=== PATIENT | male | born 1965 | race Caucasian/White ===

== ENCOUNTER 2020-07-10 07:39 | Outpatient (NON) | payer OTHER, SELFPAY ==
[2020-07-10 18:19] LABS: SARS-CoV-2 RNA PCR Negative
== END 2020-07-10 07:40 ==
LOC: ANHCOVIDDT 07:41
PROVIDERS: Visit Provider Physician Assistant
DX: R68.89 Other general symptoms and signs (principal); Z20.828 Contact with and (suspected) exposure to other viral communicable diseases
CPT/HCPCS: 87635; C9803; U0003

== ENCOUNTER 2020-10-30 10:06 | Outpatient (CLI) | payer OTHER, SELFPAY ==
--- NOTE | 2020-11-14 19:31 | WPDHOMESLEEP ---
Sleep Study - Home Unattended Date of Study: 10/30/20 Ordering Provider: Lino Guerrero MD Interpreting Provider: Ese Kilgore MD Home Sleep Study Type: Apnea Link Air Height: 1.83 m Weight: 127.006 kg Body Mass Index: 38.0 Neck Circumference (inches): 17.5 [place]: 7 Reason for Sleep Study Hypersomnia Sleep History Herbert Reyes is a 55 year old man who describes himself as a restless sleeper. He has had palpitations especially at night since he had COVID-19. He snores loudly and never feels rested. He takes medications to help him fall asleep every night. Both of his parents have sleep issues and he has an uncle who uses CPAP. He rarely awakens at night with heartburn, belching or coughing. He constantly awakens from sleep feeling short of breath. He occasionally has trouble sleep with a cold. He rarely wakes up gasping for breath at night. He frequently is breathing problems at night observed by others. He rarely sweats excessively at night. He frequently notices his heart pounding irregularly at night. He rarely falls asleep during the day, never involuntarily or while driving. He does not have loss of muscle tone with strong emotion. He rarely has daytime difficulties due to excessive sleepiness, works as a . He does not feel paralyzed a waking or falling asleep and does not have vivid dreamlike scenes upon awakening or falling asleep. He rarely is afraid to go to sleep. He does not have nightmares. He rarely remembers his dreams and really has racing thoughts. He does not feel sad or depressed. He occasionally feels and anxious. He occasionally has muscular tension, occasionally notices parts of his body jerking and he occasionally kicks at night. He rarely has crawling or aching feelings in his legs at night. He rarely has any kind of leg pain at night. He does not have morning jaw pain. He rarely grinds his teeth during sleep. He occasionally has bothered by pain during the day. He frequently is awakened by pain at night. He frequently wakes up feeling stiff in the morning. He rarely wakes up with sore or achy muscles and rarely wakes up with pain in the neck and spine. He has fatigue, memory problems, headaches, palpitations and bowel disturbances. he has not had a change in his weight during the last year, 280 lb. He has had a tonsillectomy. Normal bedtime is 10:00 p.m. taking 1/2 hour to 1 hour to fall asleep typically waking 1 or 2 times at night to urinate, and is able to return to sleep within 5 minutes. His sleep is sometimes disturbed by shoulder pain. He wakes the morning at 6:00 a.m.. On weekends he also goes to bed at 10:00 p.m., wakes up at 8:00 a.m.. [facility] Past Medical History Medical History (Updated 11/14/20 @ 19:45 by Ese Kilgore MD) Dyslipidemia Hypertension Palpitations Shortness of Breath Surgical History Surgical History (Updated 11/14/20 @ 19:38 by Ese Kilgore MD) History of appendectomy History of tonsillectomy Hx of cholecystectomy Family History Family History (Updated 03/16/14 @ 07:13 by DOCTOR UNKNOWN) Mother Family history of emphysema Other Diabetes mellitus Social History Social History Smoking status: Former smoker Smoking end date: 07/20/06 Alcohol intake: current Medications Medications: Indapamide 2.5 mg daily loratadine 10 mg a day vitamin-C 500 mg daily aspirin 81 mg 2 tablets daily escitalopram oxalate 10 mg daily Rosuvastatin calcium 10 mg daily losartan 100 mg daily Sleep Procedure This test was performed using 4 channel monitoring including respiratory effort channel, snoring channel, heart rate channel, and oxygen saturation channel. This study was scored using CMS guidelines. Sleep Architecture Not applicable for home sleep test. Respiratory Analysis The recording time is 7 hours 45 minutes. The evaluation time is 7 hours 32 minutes. The apnea-hypopnea index is 7. He had 7 apneas.
[2020-11-14 19:47] VITALS: BMI 38.0
== END 2020-10-30 10:07 | disposition home or self-care (01) ==
LOC: ANHCSM 10:07
PROVIDERS: PCP Family Medicine; Visit Provider Family Medicine
DX: G47.10 Hypersomnia, unspecified (principal); G47.33 Obstructive sleep apnea (adult) (pediatric)
CPT/HCPCS: 95806

== ENCOUNTER → 2021-09-10 09:44 | Outpatient (CLI) | payer OTHER, SELFPAY ==
--- NOTE | ~2021-09-10 | CT_ITS ---
EXAMINATION: CT abdomen pelvis wo con DATE: 09/10/2021 10:04 INDICATION: Left flank pain TECHNIQUE: Computed tomography (CT) of the abdomen and pelvis was performed without intravenous contr ast. The dose-length product (DLP) was 1170.84 mGy-cm. Automated exposure control and iterative recon struction technique were employed. COMPARISON: 06/15/2013 FINDINGS: Minimal dependent atelectasis is present in the lung bases. The heart size is normal. Bilat eral gynecomastia is noted. The liver, spleen, pancreas, and adrenal glands are normal. There has bee n interval cholecystectomy. No stones are identified in the kidneys, ureters, or bladder. There is no hydronephrosis or hydroureter. The kidneys are unremarkable. No pathologically enlarged abdominal or pelvic lymph nodes are identified. There is no free intraperitoneal gas or evidence of bowel obstruc tion. There are bilateral internal hernias containing fat. Colonic diverticulosis is present without evidence of diverticulitis. IMPRESSION: 1. No CT correlate for the patient's symptoms. Reviewed, dictated and finalized at location F. [employer] SH[employer]DER
== END ==
PROVIDERS: PCP Family Medicine; Visit Provider Family Medicine
DX: R10.9 Unspecified abdominal pain (principal)
CPT/HCPCS: 74176

== ENCOUNTER 2022-04-28 01:12 | Day surgery (SDC) | payer OTHER, SELFPAY ==
[2022-04-10 12:35] VITALS: BMI 38.7
[2022-04-28 09:41] VITALS: BP 127/74; PULSE 67; RESP 17; TEMP 36.3; O2SAT 97; BMI 38.9
[2022-04-28] MEDS: LACTATED RINGERS 1,000 ML 150 ML IV CONT (09:50)
--- NOTE | 2022-04-28 10:09 | PM.HPGS ---
History of Present Illness History of Present Illness Consent: Risks, benefits, and alternatives have been discussed and questions answered. Patient agrees to proceed with procedure. Chief complaint: rectal bleeding Narrative: Herbert Benitez is a 57 year old male Presents for colonoscopy. Patient denies prior colonoscopy. He reports his current weight appetite bowel movements are normal. He reports bright red blood per rectum occurs intermittently perhaps every month after hard stool. He denies any abdominal pain. His weight has remained stable. His family history is noncontributory. Review of Systems Review of Systems: Review of systems noncontributory. [facility] Past Medical History Medical History (Updated 04/28/22 @ 10:10 by Jalen Dozier MD) Dyslipidemia Hypertension Palpitations Shortness of Breath Surgical History Surgical History (Updated 11/14/20 @ 19:38 by Ese Kilgore MD) History of appendectomy History of tonsillectomy Hx of cholecystectomy Family History Family History (Updated 03/16/14 @ 07:13 by DOCTOR UNKNOWN) Mother Family history of emphysema Other Diabetes mellitus Social History Social History Smoking packs per day: 1 Smoking cigarettes per day: 20.0 Years smoked: 10 Smoking pack-years: 10.00 Smoking status: Former smoker Tobacco type: cigarettes Smoking end date: 07/20/06 Alcohol intake: current Drinks per week: 3 Substance use: never Substance use type: does not use Living arrangements: with family Spiritual care concerns: No Meds Home Medications and Allergies Home Medications Medication Instructions Recorded Confirmed Type atorvastatin 20 mg tablet 20 mg PO DAILY 04/10/22 04/28/22 History escitalopram oxalate 10 mg tablet 10 mg PO DAILY 04/10/22 04/28/22 History (Lexapro) indapamide 2.5 mg tablet 2.5 mg PO DAILY 04/10/22 04/28/22 History loratadine 10 mg tablet 10 mg PO DAILY 04/10/22 04/28/22 History losartan 100 mg tablet 100 mg PO DAILY 04/10/22 04/28/22 History melatonin 10 mg tablet 10 mg PO HS PRN Insomnia 04/10/22 04/28/22 History Allergies Allergy/AdvReac Type Severity Reaction Status Date / Time No Known Allergies Allergy Verified 04/28/22 09:40 Vital Signs Vital Signs - 24 hr 04/28/22 09:41 Temperature 97.3 F L Pulse Rate 67 Respiratory Rate 17 Blood Pressure 127/74 Pulse Oximetry 97 Oxygen Delivery Room Air Exam Narrative: Physical exam reveals patient to be alert. Vital signs stable. HEENT exam is unremarkable. Patient is anicteric. Lungs are clear to auscultation and percussion. Heart is without murmur or extra sounds. Abdomen bowel sounds are present soft nontender with no organomegaly. Digital external rectal exam is normal. Assessment and Plan Assessment and plan (1) Rectal bleeding: Code(s): K62.5 - Hemorrhage of anus and rectum Status: Acute Assessment and Plan: Patient with intermittent rectal bleeding. Plan is for high-fiber dieen after endoscopy. Fiber supplement such as Metamucil is also encouraged. A colonoscopy will be obtained. Consider surgical therapy of hemorrhoids are identified. Further recommendations will be given After endoscopy.
--- NOTE | 2022-04-28 10:12 | P.PNAN_ITS ---
Anes - Initial Pre Proc Eval Procedure: Operation Date: 04/28/22 11:00 Proposed Procedures p Colonoscopy - Jalen Dozier MD Date/Time: 04/28/22 10:12 Surgeon: Jalen Dozier MD Pre Op Diagnosis: rectal bleeding Patient Data Age: 57 Gender: M Height: 1.83 m Weight: 130.1 kg Last Vital Signs Temp 97.3 F L 04/28/22 09:41 Pulse 67 04/28/22 09:41 Resp 17 04/28/22 09:41 BP 127/74 04/28/22 09:41 Pulse Ox 97 04/28/22 09:41 O2 Del Method Room Air 04/28/22 09:41 Allergies Allergy/AdvReac Type Severity Reaction Status Date / Time No Known Allergies Allergy Verified 04/28/22 09:40 Home Medications Medication Instructions Recorded Confirmed Type atorvastatin 20 mg tablet 20 mg PO DAILY 04/10/22 04/28/22 History escitalopram oxalate 10 mg tablet 10 mg PO DAILY 04/10/22 04/28/22 History (Lexapro) indapamide 2.5 mg tablet 2.5 mg PO DAILY 04/10/22 04/28/22 History loratadine 10 mg tablet 10 mg PO DAILY 04/10/22 04/28/22 History losartan 100 mg tablet 100 mg PO DAILY 04/10/22 04/28/22 History melatonin 10 mg tablet 10 mg PO HS PRN Insomnia 04/10/22 04/28/22 History Patient hx anesthesia problems: none Family hx anesthesia problems: none Results Review: All pre-operative results and documents have been reviewed as part of the pre- operative evaluation. [facility] [place] Past Medical History Medical History (Updated 04/28/22 @ 10:10 by Jalen Dozier MD) Dyslipidemia Hypertension Palpitations Shortness of Breath Surgical History Surgical History (Updated 11/14/20 @ 19:38 by Ese Kilgore MD) History of appendectomy History of tonsillectomy Hx of cholecystectomy Family History Family History (Updated 03/16/14 @ 07:13 by DOCTOR UNKNOWN) Mother Family history of emphysema Other Diabetes mellitus Social History Social History Smoking packs per day: 1 Smoking cigarettes per day: 20.0 Years smoked: 10 Smoking pack-years: 10.00 Smoking status: Former smoker Tobacco type: cigarettes Smoking end date: 07/20/06 Alcohol intake: current Drinks per week: 3 Substance use: never Substance use type: does not use Living arrangements: with family Spiritual care concerns: No Anes - Eval Final PreProcedure Day of Procedure 04/28/22 10:12 Patient weight: obese Heart: regular rate and rhythm Lungs: clear to auscultation Airway: Mallampati scale class II Neurological: alert and oriented Last oral intake: >/= 8 hours ASA classification: III Emergent: no Anesthetic plan: proceed Anesthesia type and monitoring: general GIVS and standard monitoring Results Review: All pre-operative results and documents have been reviewed as part of the pre- operative evaluation. Informed Consent: The patient's anesthetic plan and its attendant risks and benefits were discussed with the patient/family/POA. Questions were solicited and answers provided to the satisfaction of the patient/family/POA.
[2022-04-28 10:45] VITALS: BP 103/50; PULSE 66; RESP 18; O2SAT 97
[2022-04-28 10:55] VITALS: BP 108/66; PULSE 60; RESP 19; O2SAT 96
[2022-04-28 11:05] VITALS: BP 119/89; PULSE 63; RESP 16; O2SAT 98
== END 2022-04-28 11:16 | disposition home or self-care (01) ==
PROVIDERS: PCP Family Medicine; Visit Provider Internal Medicine Gastroenterology
PROC: 0DJD8ZZ Inspection of Lower Intestinal Tract, Via Natural or Artificial Opening Endoscopic (ICD-10-PCS; CPT 45378; principal; 2022-04-28 11:00)
DX: Z12.11 Encounter for screening for malignant neoplasm of colon (principal); D12.2 Benign neoplasm of ascending colon; K63.5 Polyp of colon; K62.1 Rectal polyp; K62.5 Hemorrhage of anus and rectum; I10 Essential (primary) hypertension; R00.2 Palpitations; Z87.891 Personal history of nicotine dependence; E66.9 Obesity, unspecified; Z68.38 Body mass index [BMI] 38.0-38.9, adult
CPT/HCPCS: 45385; 88305; J2704; J7120

== ENCOUNTER → 2022-08-07 15:54 | Outpatient (CLI) | payer OTHER, SELFPAY ==
--- NOTE | ~2022-08-07 | XR_ITS ---
EXAMINATION: XR cervical spine 4-5V DATE: 08/07/2022 16:26 INDICATION: Cervical radiculopathy. TECHNIQUE: 4 views of cervical spine were obtained. COMPARISON: None. FINDINGS: There is 9 degrees levocurvature of cervicothoracic spine. Vertebral body heights are cora l. There is mildly decreased disc height at C5-C6 and moderately decreased disc height at C6-C7. Ther e is severe uncovertebral joint osteoarthritis on the left at C5-C6 and bilaterally at C6-C7. The fac et joints are unremarkable. No central canal stenosis or prevertebral soft tissue swelling. IMPRESSION: 1. Moderate cervical spondylosis. Reviewed, dictated and finalized at location A. [employer] ANALYST
== END ==
PROVIDERS: PCP Family Medicine; Visit Provider Family Medicine
DX: M47.22 Other spondylosis with radiculopathy, cervical region (principal)
CPT/HCPCS: 72050